=== PATIENT | female | born 1950 | race Caucasian/White ===

== ENCOUNTER 2017-10-11 16:09 | Emergency (ER) | payer MEDICARE ==
[~2017-10-11] VITALS: Ht 172.7 cm; Wt 77.1 kg
[2017-10-11] MEDS ORDERED: ZITHROMAX250 MG PO (17:38)
[2017-10-11] MEDS ORDERED: ONDANSETRON ODT8 MG PO (17:38)
[2017-10-11] MEDS ORDERED: METHYLPREDNISOLO4 M1 PO (17:38)
--- NOTE | 2017-10-12 08:49 | EKG ---
[facility] [address] [facility] [facility] [place] [address] Signed Normal sinus rhythm Possible Left atrial enlargement RSR' or QR pattern in V1 suggests right ventricular conduction delay Prolonged QT Abnormal ECG No previous ECGs available Confirmed by OBI REYNOLDS MD ([id number]) on 10/12/2017 8:49:18 AM Electronically Signed By: OBI REYNOLDS MD 10/12/17 0849 PATIENT NAME: KAREN HERNANDEZ Electrocardiogram DATE OF : 46 PHYSICIAN: OBI REYNOLDS MD REPORT #: [id number] REPORT IS CONFIDENTIAL AND NOT TO BE RELEASED WITHOUT AUTHORIZATION
[2017-10-12] MEDS ORDERED: TRANSDERM-SCOP1 EACH TD (20:49)
[2017-10-12] MEDS ORDERED: ZOFRAN4 MG PO (20:49)
== END 2017-10-11 18:23 | disposition home or self-care (01) ==
LOC: ED 16:09
DX: H83.09 Labyrinthitis, unspecified ear (principal)
CPT/HCPCS: 70450; 80053; 83690; 84484; 85025; 93005; 93010; 96361; 96374; 96375; 99284; J1100; J2060; J2405; J7030

== ENCOUNTER 2017-10-12 19:13 | Emergency (ER) | payer MEDICARE ==
[~2017-10-12] VITALS: Ht 172.7 cm; Wt 77.1 kg
[~2017-10-12 19:13] MED LIST: METHYLPREDNISOLO4 M1 PO; ONDANSETRON ODT8 MG PO; ZITHROMAX250 MG PO
[2017-10-12] MEDS ORDERED: TRANSDERM-SCOP1 EACH TD (20:49)
[2017-10-12] MEDS ORDERED: ZOFRAN4 MG PO (20:49)
== END 2017-10-12 21:40 | disposition home or self-care (01) ==
LOC: ED 19:13
PROC: 0T9B70Z Drainage of Bladder with Drainage Device, Via Natural or Artificial Opening (ICD-10-PCS; principal; 2017-10-12)
DX: H83.09 Labyrinthitis, unspecified ear (principal); Z79.899 Other long term (current) drug therapy
CPT/HCPCS: 51701; 80053; 81001; 85025; 96361; 96374; 99283; J2550; J7030